=== PATIENT | female | born 1995 | race Caucasian/White ===

== ENCOUNTER 2020-02-11 07:19 | Outpatient (CLI) | payer OTHER, SELFPAY ==
[2020-02-11 08:20] LABS: Beta HCG Quantitative 25.87 mIU/ML
[2020-02-14 03:42] LABS: Progesterone 7.3 ng/mL (***)
== END 2020-02-11 07:20 | disposition home or self-care (01) ==
PROVIDERS: PCP Internal Medicine
DX: N91.2 Amenorrhea, unspecified (principal)
CPT/HCPCS: 36415; 84144; 84702

== ENCOUNTER 2024-04-05 08:42 | Emergency (ER) | payer OTHER, SELFPAY ==
--- NOTE | ~2024-04-05 | XR_ITS ---
EXAMINATION: XR chest 1V portable DATE: 04/05/2024 09:42 INDICATION: Shortness of breath TECHNIQUE: frontal view of the chest was obtained. COMPARISON: None FINDINGS: The lungs are clear with no focal airspace opacities, pulmonary edema, pleural effusion or pneumothor ax. The cardiomediastinal silhouette is normal. Visualized bones and soft tissues are unremarkable. IMPRESSION: 1. No acute cardiopulmonary disease. Reviewed, dictated and finalized at location A.
[2024-04-05 08:50] VITALS: BP 120/80; PULSE 90; RESP 16; TEMP 36.7; O2SAT 100
--- NOTE | 2024-04-05 08:59 | ECG_ITS ---
Test Date: 2024-04-05 08:55:35 Measurements Intervals [place] Rate: 88 P: 74 CT: 108 QRS: 59 QRSD: 103 T: 50 QT: 371 QTc: 451 Interpretive Statements SINUS RHYTHM WITH SINUS ARRHYTHMIA WITH SHORT CT INTERVAL NONSPECIFIC T-WAVE ABNORMALITY No previous ECG available for comparison Electronically Signed On 04-05-2024 13:05:34 CDT by Robert Desai M.D.
[2024-04-05 09:00] VITALS: BP 120/80; PULSE 89; RESP 23; O2SAT 100
--- NOTE | 2024-04-05 09:09 | ED.GENADULT ---
HPI - General Adult General Chief complaint: Shortness of Breath/Dyspnea Stated complaint: shortness of breath, palpitations Time Seen by Provider: 04/05/24 08:58 History of Present Illness HPI narrative: 28-year-old female presented to the emergency department for evaluation for epigastric and chest tightness with associated shortness of breath. Patient reports symptoms started yesterday as she was getting ready to come to work. Patient also suspected this may have been secondary to anxiety. Instead of going to work patient did go home and rested. she woke this morning she was still having symptoms so she presented to the emergency department for evaluation. Patient denies any cardiac history. Patient did have her appendix out in June but denies any recent surgeries. Patient denies any calf pain. Patient denies any chest pain. Patient denies any recent illnesses coughs colds or fevers. Related Data Home Medications Medication Instructions Recorded Confirmed buspirone 7.5 mg tablet mg 04/05/24 Allergies Allergy/AdvReac Type Severity Reaction Status Date / Time cephalexin Allergy Mild rash Verified 04/05/24 08:43 Review of Systems Review of Systems: All systems reviewed & are unremarkable except as noted in HPI and below PMFSH Social History Social History Smoking status: Never smoker Second hand tobacco smoke exposure: No Alcohol intake: current Exam Narrative: APPEARANCE: Well appearing, no pain, no distress, well-nourished. HEAD: normocephalic, atraumatic. EYES: PERRLA/EOMI, conjunctivae clear. NOSE: Normal no drainage EARS:TMS clear with good light reflex. THROAT: Pharynx clear, no exudate. NECK: Supple. No adenopathy, no masses. RESPIRATORY: Airway patent, respirations nonlabored. Clear to auscultation bilaterally, no rales, rhonchi, wheezing. CARDIOVASCULAR: Regular rate and rhythm without murmurs rubs or gallops. ABDOMINAL: Soft, nontender, nondistended, normal bowel sounds MUSCULOSKELETAL: Moves all extremities. Strength/ROM intact, No edema, No calf tenderness. NEURO: Alert. Cranial nerves II through XII intact. Grossly intact SKIN: Warm, dry. Normal Color PSYCHIATRIC: Anxious affect Course Vital Signs Vital signs: Vital Signs Temperature 98.1 F 04/05/24 08:50 Pulse Rate 90 04/05/24 08:50 Respiratory Rate 04/05/24 08:50 Blood Pressure 120/80 04/05/24 08:50 Pulse Oximetry 100 04/05/24 08:50 Oxygen Delivery Room Air 04/05/24 08:50 Temperature 98.1 F 04/05/24 08:50 Pulse Rate 83 04/05/24 11:05 Respiratory Rate 16 04/05/24 11:05 Blood Pressure 116/75 04/05/24 11:05 Pulse Oximetry 97 04/05/24 11:05 Oxygen Delivery Room Air 04/05/24 08:55 Medical Decision Making MDM Narrative Medical decision making narrative: 28-year-old female presents emergency department for evaluation for some shortness of breath. Patient will be treated nebulized albuterol to see if this helps his symptoms. Patient is also having D-dimer chest x-ray ordered. All at baseline labs. Patient was willing to take some p.o. Ativan for her baseline anxiety. The patient did feel improved with the anxiety medication. Patient is afebrile with no leukocytosis and a stable hemoglobin. Patient's D-dimer was not elevated. No acute abnormalities on the patient's CMP patient was negative for influenza RSV and for COVID. Chest x-ray shows no acute cardiopulmonary abnormality. Patient was updated the results of her workup patient is comfortable the plan for discharge and close follow-up. Low concern for pneumothorax, pneumonia, pulmonary embolism. Suspect possible viral etiology and symptoms worsened the patient's anxiety. Patient was encouraged of close follow-up with her primary care physician. Vital Signs Vital Signs: Vital Signs Temperature 98.1 F 04/05/24 08:50 Pulse Rate 90 04/05/24 08:50 Respiratory Rate 16 04/05/24 08:50 Blood Pressure 12
[2024-04-05] MEDS: ALBUTEROL SULFATE NEB 2.5 MG/3 ML INH INHALATION (09:21)
[2024-04-05] MEDS: LORazepam (*CRX) 1 MG TABLET PO (09:22)
[2024-04-05 09:23] LABS: Basophils Percent Auto 0.3 % (0.2-1.2); Eosinophils Absolute Auto 0.2 K/mm3 (0-0.3); Eosinophils Percent Auto 2.4 % (0-4.4); Hematocrit 41.9 % (37.0-47.0); Hemoglobin 14.2 g/dL (12.0-15.0); Immature Granulocyte Absolute 0.02 K/mm3 (0.00-0.031); Immature Granulocyte Percent A 0.2 % (0-0.5); Lymphocytes Absolute Auto 3.37 K/mm3 (0.9-3.2); Lymphocytes Percent Auto 38.2 % (18.3-44.2); Mean Corpuscular HGB Conc 33.9 g/dl (32-36); Mean Corpuscular Hemoglobin 29.8 pg (26-34); Mean Platelet Volume 8.9 fl (7.4-10.4); Monocytes Absolute Auto 0.4 K/mm3 (0.1-0.6); Monocytes Percent Auto 4.6 % (2.6-8.5); Neutrophils Absolute Auto 4.8 K/mm3 (1.3-6.7); Neutrophils Percent Auto 54.3 % (45.5-73.1); Platelet Count Result 220 k/mm3 (150-375); Red Blood Count 4.76 M/mm3 (4.2-5.4); Red Cell Distribution Width 12.7 % (11.5-14.5); White Blood Count 8.8 K/mm3 (4.5-10.0)
[2024-04-05 09:30] VITALS: BP 116/61; PULSE 87; RESP 15; O2SAT 99
[2024-04-05 09:37] LABS: D Dimer < 0.27 ug/mL (<0.48)
[2024-04-05 10:00] VITALS: BP 126/71; PULSE 85; RESP 11; O2SAT 99
[2024-04-05 10:00] LABS: Influenza A QL RT-PCR Negative (Negative); Influenza B QL RT-PCR Negative (Negative); RSV RNA, RT-PCR Negative (Negative); SARS-CoV-2 RNA PCR Negative (Negative)
[2024-04-05 10:13] LABS: Alanine Aminotransferase 13 U/L (6-35); Albumin Level 5.3 g/dL (3.5-5.1); Alkaline Phosphatase 75 U/L (38-126); Anion Gap 13 mmol/L (4-12); Aspartate Amino Transferase 20 U/L (14-36); Bilirubin,Total 0.5 mg/dL (0.2-1.3); Blood Urea Nitrogen 12 mg/dL (7-17); Calcium 9.6 mg/dL (8.4-10.2); Carbon Dioxide 21 mmol/L (22-30); Chloride 107 mmol/L (98-107); Estimated CRCL calculation 107 ml/min; Estimated Glomerular Filt Rate > 60; Glucose 92 mg/dL (65-110); Potassium 3.5 mmol/L (3.4-5.0); Sodium 141 mmol/L (137-145)
[2024-04-05 11:05] VITALS: BP 116/75; PULSE 83; RESP 16; O2SAT 97
== END 2024-04-05 11:10 | disposition home or self-care (01) ==
PROVIDERS: Emergency Provider Emergency Medicine; PCP Nurse Practitioner Family
DX: R06.00 Dyspnea, unspecified (principal); Z20.822 Contact with and (suspected) exposure to COVID-19; R94.31 Abnormal electrocardiogram [ECG] [EKG]; Z79.899 Other long term (current) drug therapy
CPT/HCPCS: 36415; 71045; 80053; 81025; 85025; 85380; 87637; 93005; 94640; 99284; A9270